=== PATIENT | female | born 1995 | race Caucasian/White ===

== ENCOUNTER 2019-10-06 00:36 | Emergency (ER) | payer OTHER ==
[~2019-10-06] VITALS: Ht 162.6 cm; Wt 72.0 kg
[2019-10-06] MEDS ORDERED: ALBUTEROL INHALER (01:06)
[2019-10-06] MEDS ORDERED: KETOROLAC 30MG/ML VIAL IV STA (01:26)
[2019-10-06] MEDS ORDERED: SODIUM CHLORIDE 0.9% 1,000 ML IV ONE (01:26)
[2019-10-06 02:16] LABS: CLARITY URINE CLEAR (CLEAR); COLOR URINE YELLOW (YELLOW); KETONES URINE NEGATIVE (NEGATIVE); LEUKOCYTE ESTERASE URINE NEGATIVE (NEGATIVE); NITRITE URINE NEGATIVE (NEGATIVE); OCCULT BLOOD URINE TRACE (NEGATIVE); PROTEIN URINE NEGATIVE (NEGATIVE); SPECIFIC GRAVITY URINE 1.022 (1.005-1.030); UROBILINOGEN URINE 0.2 E.U./dL (0.2-1.0)
[2019-10-06 02:22] LABS: CHLORIDE 107 mEq/L (98-107)
[2019-10-06 02:28] LABS: PROTHROMBIN TIME 11.1 sec (9.6-11.0)
[2019-10-06 02:29] LABS: BASOPHILS % 0.2 % (0.0-2.0); EOSINOPHILS % 1.3 % (0.0-5.0); HEMATOCRIT. 35.7 % (36.0-48.0); HEMOGLOBIN. 12.3 g/dL (12.0-16.0); LYMPHOCYTES % 29.3 % (20.0-50.0); MEAN CORPUSCULAR HEMOGLOBIN 30.6 pg (28.0-32.0); MEAN CORPUSCULAR VOLUME 88.5 fL (81.0-99.0); MEAN PLATELET VOLUME 9.8 fl (7.4-10.4); MONOCYTES % 5.9 % (2.0-8.0); NEUTROPHILS % 63.3 % (40.0-76.0); PLATELET 261 x1000/uL (130-400); RED BLOOD CELL COUNT 4.03 mill/uL (4.2-5.4); RED CELL DISTRIBUTION WIDTH 12.4 % (11.6-14.6)
[2019-10-06] MEDS ORDERED: CEFTRIAXONE 1 G PREMIX 50 ML IV ONE (02:30)
[2019-10-06 02:34] LABS: HCG SCREEN NEGATIVE
[2019-10-06 03:32] VITALS: BP 98/52
== END 2019-10-06 04:31 | disposition home or self-care (01) ==
LOC: EDSEX 00:36 → ER 01:32
DX: N12 Tubulo-interstitial nephritis, not specified as acute or chronic (principal); J45.909 Unspecified asthma, uncomplicated; Z88.8 Allergy status to other drugs, medicaments and biological substances
CPT/HCPCS: 36415; 80053; 81003; 81025; 83690; 84703; 85025; 85610; 87086; 96361; 96365; 96375; 99284; J0696; J1885; J7030

== ENCOUNTER 2020-12-18 21:05 | Observation (INO) | payer OTHER ==
[~2020-12-18] VITALS: Ht 160 cm; Wt 74.8 kg
[~2020-12-18 21:05] MED LIST: ALBUTEROL INHALER
[2020-12-19 00:32] LABS: CLARITY URINE CLEAR (CLEAR); COLOR URINE DARK YELLOW (YELLOW); KETONES URINE 3+ (NEGATIVE); LEUKOCYTE ESTERASE URINE NEGATIVE (NEGATIVE); NITRITE URINE NEGATIVE (NEGATIVE); OCCULT BLOOD URINE NEGATIVE (NEGATIVE); PROTEIN URINE TRACE (NEGATIVE); SPECIFIC GRAVITY URINE 1.028 (1.005-1.030); UROBILINOGEN URINE 0.2 E.U./dL (0.2-1.0)
[2020-12-19] MEDS ORDERED: ACETAMINOPHEN 500MG TABLET PO SCH (01:00)
[2020-12-19] MEDS ORDERED: LACTATED RINGERS 1,000 ML IV SCH (01:15)
== END 2020-12-19 04:10 | disposition home or self-care (01) ==
LOC: ER 21:05 → 8 EST LDRP 22:30
PROVIDERS: ADMIT Specialist; ATTEND Specialist
DX: O62.9 Abnormality of forces of labor, unspecified (principal); O26.892 Other specified pregnancy related conditions, second trimester; G43.909 Migraine, unspecified, not intractable, without status migrainosus; Z3A.27 27 weeks gestation of pregnancy
CPT/HCPCS: 59025; 81003; 82731; 96360; 96361; G0378; 99281